=== PATIENT | female | born 1935 | race Caucasian/White ===

== ENCOUNTER 2020-06-19 16:47 | Day surgery (SDC) | payer MEDICARE ==
[~2020-06-19] VITALS: Ht 147.3 cm; Wt 48.5 kg
--- NOTE | 2020-06-19 16:38 | NUR ---
assessment completed, admission paperwork completed, pt vitals taken and stable, pt reporting L flank pain 10/30. pt has fentanyl patch on back that was replaced today according to JOVAN Martinez at [facility]. med rec completed, npo since 1129. no other needs.
[~2020-06-19 16:47] MED LIST: AMITRIPTYLINE H25 M1 PO; CEPHALEXIN500 M1 PO; FENTANYL 75MCG TD; LODINE400 MG PO; NEURONTIN100 MG/CAP PO; NORCO 325 MG-101 TAB PO; PLAQUENIL 200M200 MG PO; SOMA 350MG350 MG/TAB PO; VALIUM 5MG T5 MG/TAB PO
[2020-06-19 17:29] VITALS: BP 142/73; PULSE 78; TEMP 97.8
--- NOTE | 2020-06-19 18:05 | NUR ---
PT REPORTING PAIN IN L FLANK, PLACED HAT IN TOILET TO STRAIN URINE, PT INDEPENDENT IN ROOM, FLUIDS RUNNING @125ML/HR, PAIN MEDICATIONS GIVEN, PT ORDERED DINNER, EDUCATED ON NPO STATUS AT MIDNIGHT, ATTEMPTED TO CALL CONSULT TO DR. HODGSON, UNABLE TO REACH HIM SO VOICEMAIL LEFT.
[2020-06-19] MEDS ORDERED: PYRIDIUM 100MG100 MG PO (18:53)
[2020-06-19 19:01] LABS: BASO % 0.4 % (0.0-2.0); EOS # 0.1 (0.0-0.7); EOS % 1.6 % (0-4.0); GRAN # 3.4 (1.4-6.5); HEMOGLOBIN 10.6 g/dl (12.5-16.0); LYMPH # 0.9 (1.2-3.4); LYMPH % 17.3 % (20.0-51.0); MEAN CELL VOLUME 101 fl (80.0-100.0); MEAN CORPUSCULAR HEMOGLOBIN 32 pg (27.0-31.0); MEAN CORPUSCULAR HGB CONC 32 g/dl (33.0-37.0); MONO # 0.6 (0.1-0.6); MONO % 12.5 % (1.7-9.3); PLATELET COUNT 142 K/mm3 (130-400); RED BLOOD COUNT 3.27 M/mm3 (4.10-5.30); REDCELL DISTRIBUTION WIDTH-CV 14.1 % (11.5-14.5)
[2020-06-19 19:06] LABS: HEMATOCRIT 32.9 % (37.0-47.0)
[2020-06-19 19:13] LABS: ALBUMIN 3.1 gm/dL (3.5-5.0); BILIRUBIN,TOTAL 0.1 mg/dL (0.0-1.0); CALCIUM 8.2 mg/dL (8.4-10.2); CREATININE, serum 0.65 (0.52-1.25); POTASSIUM 3.9 mmol/L (3.4-5.0); TOTAL PROTEIN 5.7 gm/dL (6.4-8.2)
[2020-06-19 20:09] VITALS: BP 164/65; PULSE 86; TEMP 98
[2020-06-19 20:19] LABS: PARTIAL THROMBOPLASTIN TIME 30.1 SECONDS (26.0-37.0)
[2020-06-20] VITALS (7 sets, daily range): BP systolic 139–179; BP diastolic 52–78; PULSE 67–98; TEMP 97.7–98.5
--- NOTE | 2020-06-20 05:41 | NUR ---
Patient recieved pain medication throughout the night in regards to right flank pain. Urine strained and no stone present. Patient has been NPO since midnight. Bed alarm on and call light within reach of patient.
--- NOTE | 2020-06-20 06:59 | NUR ---
PT REPORTING PAIN, MARCO ANTONIO JAY BRINGING MORPHINE
--- NOTE | 2020-06-20 07:05 | NUR ---
Morphine 1mg given at this time for left flank pain, Up to bathroom with assist, voided 300cc alix urine- did have small stone,, put in specimen cup for to see. Day shift RN aware of pt passing stone.
--- NOTE | 2020-06-20 07:11 | NUR ---
MISTY BERNARD FOUND STONE WHEN STRAINING PT URINE, PLACED IN CONTAINER IN PT BATHROOM FOR PHYSICIAN.
--- NOTE | 2020-06-20 07:43 | NUR ---
spoke to Dr. Lam on the phone, wants to keep pt NPO at this time but believes pt passed the large stone causing the discomfort. will keep stone in room for assessment by physician when he arrives.
--- NOTE | 2020-06-20 08:42 | NUR ---
INFORMED PT SURGERY IS MOST LIKELY POSTPONED DUE TO PASSING STONE. PT REPORTING PAIN 7/10 IN L FLANK AND BACK. NORCO GIVEN WITH OTHER MEDICATIONS DUE IN AM. PT REPORTS HER BEING VERY ANXIOUS WITH THE COVID DIAGNOSIS. NO OTHER NEEDS AT THIS TIME.
--- NOTE | 2020-06-20 09:24 | NUR ---
The patient is positive for COVID. SW attempted to contact the patient's room phone to discuss discharge plan. She did not answer. LISA then contacted the patient's , Severiano (ph#[phone]), to complete intake. [place] with her , Severiano, outside of [place], [place]. Severiano reports that the patient is independent with ADLs and does not have any DME. He states that they are both very active. The patient's PCP is Dr. Soto and she receives her medications from [facility] in [place], [place]. The patient does not have a DPOA-HC in EMR, but Severiano thinks that the patient does have one completed and that it would designate him and their child. Severiano reports no concerns with the patient returning back home upon discharge. No additional needs at this time.
--- NOTE | 2020-06-20 13:00 | NUR ---
SHAHIDA RN INFORMED ME PT DOWNSTAIRS IN PARKING LOT BUT CALL WAS DROPPED BEFORE IT COULD BE TRANSFERRED TO ME. ASKED PT ABOUT IT AND SHE SAID HIS PHONE WAS BUT HE WAS ON HIS WAY, I AM UNSURE TO WHY SINCE I TOLD HER THE DOCTOR HAD NOT YET PUT IN DISCHARGE ORDERS. PT STATES HE DRIVES A RED MAUREEN CAR. NOTIFIED VALENTIN AND STAY CUTTER WHOM BOTH LOOKED FOR THE VEHICLE AND COULD NOT FIND IT IN THE PARKING LOT. HAVE NOT HEARD FROM , HAS NOT COME INTO BUILDING.
--- NOTE | 2020-06-20 13:06 | NUR ---
notified dr. arias of pt still having inc pain, states to keep her npo and that he will come see her. pt wanted to be recovid tested, asked dr. allred and he declined this.
--- NOTE | 2020-06-20 15:44 | NUR ---
pt in admissions, live in housekeeper going downstairs to talk to pt's ,, called juana to notify of situation, he reported he was on his way to see pt.
--- NOTE | 2020-06-20 17:00 | NUR ---
PT STATED SHE WOULD CALL HER TO LET HIM KNOW SHES STAYING OVERNIGHT. PT PLEASANT, STILL REPORTING PAIN 7-8 CONSISTANTLY EVEN WITH MORPHINE. PT NOT ASKING FOR PAIN MEDS, HAVE TO ASK HER IF SHE WANTS IT AND SHE WILL SAY YES. PT NPO AT MIDNIGHT, NO OTHER NEEDS AT THIS TIME.
--- NOTE | 2020-06-20 20:32 | NUR ---
Shift assessment complete. Pt resting in bed, reports continuous pain to left flank partially relieved by IV morphine. 2 mg morphine administered at this time per orders. Lungs CTA, heart RRR, A&Ox4. NS running at 125 ml/hr to left chest port, no S/S complication. Denies other needs at this time. Call light in reach.
[2020-06-21] VITALS (11 sets, daily range): BP systolic 121–174; BP diastolic 49–80; PULSE 62–87; TEMP 97.7–98.2
--- NOTE | 2020-06-21 05:06 | NUR ---
BP 174/80. All other vitals within normal range. Pt reporting pain 12/30. Morphine administered for pain and Rip Lewis APRN notified. Stated to recheck BP following morphine and ordered PRN hydralazine for systolic >170. BP rechecked and was 154/70.
--- NOTE | 2020-06-21 05:56 | NUR ---
Complaints of moderate to severe pain. Rested for a few hours with eyes closed. Reporting partial relief from 2 mg IV morphine with pain still a 6/10, down from 8/10. Urine strained w/ several small hard white deposits noted. BPs elevated, decreased w/administration of pain medication.
--- NOTE | 2020-06-21 07:40 | NUR ---
PT REQUESTING PAIN MEDS EVERY 2-3HR FOR PAIN 11/29. PT WINCING IN ROOM, MORPHINE GIVEN, WARM BLANKET PLACED ON L FLANK, PT REPOSITIONED, MEDICATIONS GIVEN, NEW FLUID BAG HUNG, URINE STRAINED AND THERE IS A LOT OF SEDIMENT IN THE STRAINER. PT STEADY ON FEET WITH AMBULATION, PT EAGER FOR PROCEDURE AND DISCHARGE.
--- NOTE | 2020-06-21 12:23 | NUR ---
PT VERY FRUSTRATED THAT SHE HASNT BEEN TAKEN DOWN FOR PROCEDURE. CALLED DR. DE PAZ, SAID IT WOULD BE ABOUT ANOTHER 1HR OR 1.5HRS. NOTIFIED PT, APOLIGIZED FOR DELAY, BROUGHT IN MORPHINE AND WARM BLANKET FOR ABD. PT SEEMS A BIT MORE RELIEVED AND HAPPIER KNOWING PROCEDURE WOULD BE SOON.
--- NOTE | 2020-06-21 12:39 | NUR ---
RECEIVED CALL FROM PACU THAT PT SURGERY WOULD BE DELAYED A BIT LONGER, UPDATED PT ON THIS AND SHE SEEMED A BIT DISAPOINTED BUT UNDERSTANDING.
--- NOTE | 2020-06-21 12:49 | NUR ---
updated pt , wants and update from juana.
--- NOTE | 2020-06-21 15:32 | NUR ---
PT ARRIVED TO FLOOR, DENIES PAIN AT THIS TIME, MEDICATIONS GIVEN, PT APPEARS RELAXED, HELPED HER PLACE TEETH BACK IN, UNWRAPPED JEWELRY, HOOKED UP TO VITALS CART, CALL LIGHT NEXT TO PT, TV SHUT OFF PER PT REQUEST.
--- NOTE | 2020-06-21 17:24 | NUR ---
pt pleasant, denying pain at this time, pt vitals stable, pt eager for discharge tomorrow, fluids running, no other needs at this time.
--- NOTE | 2020-06-21 17:28 | NUR ---
unplugged pt from vitals cart, no other needs at this time.
[2020-06-22 03:36] VITALS: BP 155/61; PULSE 79; TEMP 97.5
[2020-06-22 07:35] VITALS: BP 145/62; PULSE 83; TEMP 98
--- NOTE | 2020-06-22 09:11 | NUR ---
Assessment complete. Patient sitting in bed awake and alert at this time. States she feels pretty good and is ready to go home today. Josemanuel cath site is CD&I, IVF continue to run with no issues. States she is comfortable at this time and that her pain is managed for now. States her pain in her side is better, its more the chronic pain in her back. No other needs were expressed at this time. Call light is in reach.
--- NOTE | 2020-06-22 12:32 | NUR ---
Patient left the floor at this time. Discharge paperwork discussed and sent with patient. No further questions or concerns were expressed. Port was deaccessed before departure, site was cleaned with alcohol, sterile gauze applied with tegaderm in place. No bleeding or discomfort at time of removal. Patient escorted out via wheelchair. picked her up outside of the ER.
[2020-06-22 18:09] VITALS: BP 152/70; PULSE 66; TEMP 97
== END 2020-06-22 12:34 | disposition home or self-care (01) ==
LOC: MEDICAL 16:47 → SDCO 16:47 → MEDICAL 17:34 → SDCO 06-20 10:00 → MEDICAL 06-21 17:34 → SDCO 06-21 17:34
PROVIDERS: Nurse Practitioner Family; Student in an Organized Health Care Education/Training Program
DX: N28.89 Other specified disorders of kidney and ureter (principal); U07.1 COVID-19; J45.909 Unspecified asthma, uncomplicated; M06.9 Rheumatoid arthritis, unspecified; G89.29 Other chronic pain; Z88.1 Allergy status to other antibiotic agents; Z88.8 Allergy status to other drugs, medicaments and biological substances; Z88.2 Allergy status to sulfonamides; Z88.0 Allergy status to penicillin; F41.9 Anxiety disorder, unspecified; I10 Essential (primary) hypertension
CPT/HCPCS: OP; 99223; 99231-AI; C1769; C2617; G0378; J0690; J0696; J1100; J1644; J1885; J2270; J2405; J2704; J3010; J7030; Q9967